=== PATIENT | male | born 1950 | race Caucasian/White ===

== ENCOUNTER 2020-03-07 03:14 | Outpatient (CLI) | payer OTHER, SELFPAY ==
[2020-03-11 10:04] LABS: Free PSA/PSA Ratio 0.21 ratio
== END 2020-03-07 03:34 ==
PROVIDERS: PCP Family Medicine; Visit Provider Urology
DX: R97.20 Elevated prostate specific antigen [PSA] (principal)
CPT/HCPCS: 36415; 84154

== ENCOUNTER 2021-03-12 02:11 | Outpatient (CLI) | payer OTHER, SELFPAY | END 2021-03-12 02:12 | disposition home or self-care (01) | LOC: LBO 02:11 | PROVIDERS: PCP Family Medicine; Visit Provider Urology | DX: R97.20 Elevated prostate specific antigen [PSA] (principal) | CPT/HCPCS: 84154 ==

== ENCOUNTER 2021-04-09 01:42 | Outpatient (CLI) | payer OTHER, SELFPAY ==
[2021-04-09] MEDS: Omnipaque 350 MG/ML 50 ML BTL PO (09:58)
[2021-04-09] MEDS: Breeza Beverage 473 ML BTL PO ×2 (09:58→09:59)
[2021-04-09 09:59] LABS: CREATININE 0.8 mg/dL (0.70-1.30)
--- NOTE | 2021-04-09 11:00 | DI.CT_ITS ---
Exam(s) CT ABDOMEN PELVIS W EXAM: CT ABDOMEN PELVIS W CLINICAL HISTORY: EDEMA OF MALE GENITAL ORGANS, N50.89 TECHNIQUE: Imaging Protocol: Axial computed tomography images with coronal and sagittal reformatted images were created and reviewed CONTRAST MATERIAL: Intravenous: Omnipaque 350 Contrast volume:100 mL Oral: Yes COMPARISON: No exams were available for comparison FINDINGS: ABDOMEN: Lung Bases: Small hiatal hernia. Coronary artery calcifications are present. Liver: There is diffuse decreased attenuation of the liver most consistent with fatty infiltration. There are few tiny hypodensities in the liver. They are too small for further characterization at th is time. No suspicious hepatic masses are present. Portal, Superior Mesenteric, and Splenic Veins: Unremarkable. Gallbladder and Biliary Tract: No radiodense calculus or dilation. Pancreas: Normal density, no abnormal calcifications or inflammatory process. Spleen: Normal. Adrenals: No masses seen. Kidneys: Normal size, contour and axis. No radiodense stones or obstructive uropathy. No masses seen. Abdominal Aorta: Abdominal portion non-dilated. Atherosclerosis. Bowel: No obstruction or bowel wall thickening. Appendix is unremarkable. Peritoneal Cavity: No ascites, collection or mesenteric inflammatory response. No free air. Lymph Nodes: Within normal limits. Bones: Within normal limits for the patient's age. 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 There is fusion of the L5-S1 disc space. Soft Tissues: There is a small right fat containing inguinal hernia. There is a small fat containing umbilical hernia. There is edema seen in the soft tissues of the scrotum. No focal fluid collectio n is appreciated. PELVIS: Bladder: Symmetric distention, no gross wall thickening. Reproductive Organs: The prostate gland is markedly enlarged and impinges upon the base of the urinar y bladder. Lymph Nodes: Within normal limits. Bones: Within normal limits for the patient's age. IMPRESSION: 1. Edema seen in the soft tissues of the scrotum without focal fluid collection. Testicular ultrasou nd should be considered for further evaluation. 2. Prostatic gland hypertrophy. 3. Fat containing right inguinal hernia. RADIATION DOSE DELIVERED: 2,567.01mGy.cm Total DLP DATA REPOSITORY: All CT scans at this facility are submitted to the National Radiology Data Registry (NRDR) Dose Index Registry (DIR) with the [employer] (A[employer]). RADIATION OPTIMIZATION: All CT scans at this facility use at least one of these dose optimization te chniques: automated exposure control; mA and/or kV adjustment per patient size (includes targeted exa ms where dose is matched to clinical indication); or iterative reconstruction.
[2021-04-09] MEDS: Omnipaque 350 MG/ML 100 ML BTL IJ (11:26)
== END 2021-04-09 02:02 ==
PROVIDERS: PCP Family Medicine; Visit Provider Urology
DX: Z01.812 Encounter for preprocedural laboratory examination (principal); N50.89 Other specified disorders of the male genital organs; K76.0 Fatty (change of) liver, not elsewhere classified; K76.89 Other specified diseases of liver; N40.0 Benign prostatic hyperplasia without lower urinary tract symptoms; K40.90 Unilateral inguinal hernia, without obstruction or gangrene, not specified as recurrent
CPT/HCPCS: 74177; 82565; J3490; Q9967

== ENCOUNTER → 2021-12-09 02:48 | Outpatient (CLI) | payer OTHER, SELFPAY ==
--- NOTE | 2021-12-09 08:45 | DI.US_ITS ---
Exam(s) US SCROTUM EXAM: US SCROTUM CLINICAL HISTORY: SCROTAL EDEMA, N50.89. TECHNIQUE: Scrotal ultrasound performed using grayscale, color-flow and spectral Doppler analysis. COMPARISON: No exams were available for comparison FINDINGS: Right testicle: 4.4 x 2.1 x 2.1 cm Echogenicity: Normal. Contour: Smooth. Mass: None seen. Microlithiasis: There are few tiny echogenic foci in the right testicle. Hydrocele: None. Variocele: None. Hernia: No peristalsing bowel loop identified. Epididymis: Normal. Left testicle: 3.9 x 2.1 x 2.5 cm Echogenicity: Normal. Contour: Smooth. Mass: None seen. Microlithiasis: There are few tiny echogenic foci seen within the testicle. Hydrocele: There is a small hydrocele measuring 1.6 x 1.4 x 3.0 cm. Variocele: None. Hernia: No peristalsing bowel loop identified. Epididymis: Small spermatoceles are seen in the epididymal head. The largest measures 1.8 x 1.0 x 2. 2 cm. DOPPLER: Color: Symmetric and uniform, no hyperemia. Duplex: Bilateral testicular arterial waveforms visualized. IMPRESSION: 1. No evidence of a testicular mass or inflammatory process. 2. Small left hydrocele and left epididymal cysts. DATA REPOSITORY:
== END ==
PROVIDERS: PCP Family Medicine; Visit Provider Urology
DX: N50.89 Other specified disorders of the male genital organs (principal); N43.3 Hydrocele, unspecified; N43.42 Spermatocele of epididymis, multiple; N50.3 Cyst of epididymis
CPT/HCPCS: 76870

== ENCOUNTER 2022-03-04 14:50 | Outpatient (CLI) | payer MEDICARE, SELFPAY ==
[2022-03-07 12:24] LABS: Free PSA/PSA Ratio 0.23 ratio
== END 2022-03-04 14:51 | disposition home or self-care (01) ==
PROVIDERS: PCP Family Medicine; Visit Provider Urology
DX: R97.20 Elevated prostate specific antigen [PSA] (principal)
CPT/HCPCS: 36415; 84154

== ENCOUNTER 2022-04-06 10:41 | Emergency (ER) | payer MEDICARE, SELFPAY ==
[2022-04-06 10:47] VITALS: BP 160/91; PULSE 72; RESP 18; TEMP 36.7; O2SAT 99
--- NOTE | 2022-04-06 11:00 | DI.RAD_ITS ---
Exam(s) XR RIBS RT W PA LAT CHEST CLINICAL HISTORY: Fall, Right Flank pain, R/O Rib fracture. COMPARISON: No exams were available for comparison TECHNIQUE:: PA and lateral views of the chest and four views of the right ribs were performed. FINDINGS: LUNGS:Clear. No pleural abnormality seen. HEART: Normal. MEDIASTINUM: Normal. BONES: No displaced rib fracture is seen. No bony destructive lesion is seen. OTHER FINDINGS: Right shoulder prosthesis. IMPRESSION: 1. Unremarkable radiographic appearance of the right ribs. 2. No acute pulmonary findings.
--- NOTE | 2022-04-06 11:16 | ED.GENADUL_ITS ---
Discharge Plan Disposition Patient Disposition: Home Discharge Details Clinical Impression: Chest wall soft tissue injury, Fall (on)(from) incline, initial encounter Primary Care Provider: Tonya Pinto ED Provider: Aundrea Linares Home Meds and New Rx's Prescriptions: Continued metformin 500 MG tablet 500 mg PO DAILY pravastatin 40 MG tablet 40 mg PO DAILY meloxicam 15 MG tablet 15 mg PO DAILY Patient Comments: 05/24/17 er--on hold post surgery finasteride 5 MG tablet 5 mg PO DAILY ergocalciferol (vitamin D2) 400 UNIT tablet 125 units PO WEEKLY ranitidine HCl 150 MG tablet 150 mg PO DAILY albuterol sulfate [ProAir HFA] 8.5 GM HFA aerosol inhaler 2 puff Inhalation Q4H PRN Discharge Instructions Instructions: Fall Prevention for Older Adults (ED), Chest Wall Pain (ED) Additional Instructions: No evidence of rib fracture on the x-ray. Please use the lidocaine patch as directed. Please continue to take Tylenol or Ibuprofen with food every 4-6 hours as needed for pain and swelling. Please return to the ER for any worsening pain not relieved by Tylenol ibuprofen or lidocaine patches, worsening abdominal pain, coughing up blood or coughing up any sputum. Return for any fever increased shortness of breath or concerns. You may be sore for a few days. Thank you for allowing us to take care of you today and be involved in your care. Follow up with primary care provider in 3-5 days. Return to ED sooner if any worsening or concerns. Increase oral fluids. Referrals: Tonya Pinto [Primary Care Provider] - 2 weeks Discharge Data Discharge Date/Time-TO BE ENTERED AT DEPARTURE: 04/06/22 12:11 Medical Decision Making 71-year-old male presents to the ER with chief complaint of right-sided rib pain with movement after a fall couple of days ago on Wednesday slipped on the ice while getting into the truck. He is in no respiratory distress. He does have pain to his right flank with getting up from sitting positions. Lungs are clear bilaterally no ecchymosis, depression or bruising noted. Denies any chest pain or any other associated symptoms. He did not hit his head. He is not taking any aspirin or blood thinners. Rib series x-ray ordered. Ultrasound at bedside, no evidence of significant pneumothorax at this time. Patient is moving breathing eupneic. Will consider lidocaine patch if needed. X-ray showed no acute displaced rib fracture there is a right shoulder prosthesis. No acute pulmonary findings. No evidence of pneumothorax on the x- ray. I do suspect costochondritis or musculoskeletal strain. I will discuss strict return instructions to return if any worsening shortness of breath, worsening pain not relieved by Tylenol or ibuprofen or lidocaine patches, hemoptysis or any other worsening.. Will place lidocaine patch here in the emergency department. This text was generated using STYLIGHTation system, please disregard any oddities of phrase or misspellings. Imaging Data Radiologic Study: Imaging: X-Ray Radiologist's impression: XR RIBS RT W PA LAT CHEST CLINICAL HISTORY: Fall, Right Flank pain, R/O Rib fracture. COMPARISON: No exams were available for comparison TECHNIQUE:: PA and lateral views of the chest and four views of the right ribs were performed. FINDINGS: LUNGS:Clear. No pleural abnormality seen. HEART: Normal. MEDIASTINUM: Normal. BONES: No displaced rib fracture is seen. No bony destructive lesion is seen. OTHER FINDINGS: Right shoulder prosthesis. IMPRESSION: 1. Unremarkable radiographic appearance of the right ribs. 2. No acute pulmonary findings. HPI General Mode of arrival: ambulatory . Date/Time Provider Initiated Documentation: 04/06/22 10:42 . Limitations to Documentation: no limitations . Information obtained by: patient, RN notes reviewed and old records reviewed . HPI Narrative: 71-year-old male presents to the ER with chief complaint of right-sided rib pain with movement after a fall couple of days ago on Wednesday slipped on the ice while getting into the truck. He is in no respiratory distress. He does have pain to his right flank with getting up from sitting positions. Lungs are clear bilaterally no ecchymosis, depression or bruising noted. Denies any chest pain or any other associated symptoms. He did not hit his head. He is not taking any aspirin or blood thinners. He has a history of some knee surgeries. High cholesterol and diabetes. No known drug allergies. He has been taking Tylenol and ibuprofen for pain relief. Related Data Home Medications Medication Instructions Recorded Confirmed albuterol sulfate 90 mcg/actuation 2 puff inhalation Q4H PRN 07/11/15 05/24/17 aerosol inhaler (ProAir HFA) ergocalciferol (vitamin D2) 10 mcg 125 units PO WEEKLY 07/11/15 05/24/17 (400 unit) tablet finasteride 5 mg tablet 5 mg PO DAILY 07/11/15 05/24/17 meloxicam 15 mg tablet 15 mg PO DAILY 07/11/15 metformin 500 mg tablet 500 mg PO DAILY 07/11/15 05/24/17 pravastatin 40 mg tablet 40 mg PO DAILY 07/11/15 05/24/17 ranitidine HCl 150 mg tablet 150 mg PO DAILY 07/11/15 05/24/17 Allergies Allergy/AdvReac Type Severity Reaction Status Date / Time No Known Allergies Allergy Unverified 05/24/17 08:37 General Stated Complaint: Chest/Rib IAN: 4 Review of Systems All systems reviewed & are unremarkable except as noted in HPI and below PFSH All Active Problems (Updated 04/06/22 @ 12:03 by Aundrea Linares NP) Chest wall soft tissue injury (Acute) Fall (on)(from) incline, initial encounter (Acute) Social History Smoking/Tobacco Use Status: Never Smoking risk assessment performed?: Yes Alcohol Intake: current Alcohol Intake frequency: a few times a month Do you feel safe in your relationship?: Yes Exam Narrative Exam Narrative: Constitutional: Alert and oriented x3. Appears stated age. Normal body habitus. Head: Normocephalic, no trauma. Eyes: Pupils PERRL, Red reflex noted, EOM's intact. Eyelids symmetrical without lesions, discharge, or swelling. ENT: Bilateral TM's WNL, External ear normal to inspection, no mastoid TTP, swelling, or erythema, Nasal turbinates WNL, no nasal discharge. Normal dentit ion, Posterior pharynx WNL, no exudate. Chest: RRR, Normal S1, S2, distal pulses intact. Resp: Lungs clear to auscultation bilaterally, no wheezes, rales, or rhonchi. Abdomen: Soft, non-distended, Normoactive bowel sounds all 4 quads. Musculoskeletal: Normal gait, 5/5 strength to all four extremities. Tenderness with palpation to the right lower rib cage. No ecchymosis or contusions noted. Skin: No suspicious rashes or lesions. Capillary refill less than 2 sec. Neurologic: Cranial nerves II-XII intact. Alert and oriented x 3. Motor: No deficits noted. Sensory: Intact bilaterally all 4 extremities. Reflexes: DTR's intact bilaterally.. Hematologic/Lymphatic: No ecchymosis, no lymphadenopathy. Course Vital Signs Vital signs: Vital Signs Temperature 36.7 C 04/06/22 10:47 Pulse 72 04/06/22 10:47 Respiratory Rate 18 04/06/22 10:47 Blood Pressure 160/91 H 04/06/22 10:47 Pulse Oximetry 99 04/06/22 10:47 Temperature 36.7 C 04/06/22 10:47 Pulse 72 04/06/22 10:47 Respiratory Rate 18 04/06/22 10:47 Respiratory Effort Normal 04/06/22 10:55 Respiratory Depth Normal 04/06/22 10:55 Respiratory Pattern Normal 04/06/22 10:55 Blood Pressure 160/91 H 04/06/22 10:47 Blood Pressure Position Sitting 04/06/22 10:47 Pulse Oximetry 99 04/06/22 10:47 Oxygen Delivery Method Room Air 04/06/22 10:47 Oxygen Flow Rate 0 04/06/22 10:47 Pain Level 0 04/06/22 10:55 PAWSS Have you Been Recently Intoxicated or Drunk Within the Last 30 days?: No Have you Ever Experienced Previous Episodes of Alcohol Withdrawal?: No Have you ever Experienced Withdrawal Seizures?: No Have you ever Experienced Delirium Tremens(DT)s?: No Have you ever undergone Alcohol Rehabilitation Treatment (i.e, inpt ot outpatient treatment programs)?: No Have you ever Experienced Blackouts?: No Have you ever Combined Alcohol with other Downers within the last 90 days?: No Have you ever Combined Alcohol with any other Substance of Abuse during the last 90 days?: No Positive Blood Alcohol level on Presentation? [PCS.BAL]: No Evidence of Increased Autonomic Activity (i.e. HR>120, tremor, sweating, agitation, nausea)?: No Result: 0
[2022-04-06] MEDS: Lidocaine 5% Patch 1 PATCH TP (12:00)
[2022-04-06 12:10] VITALS: PULSE 71; RESP 18; O2SAT 97
== END 2022-04-06 12:11 | disposition home or self-care (01) ==
PROVIDERS: Emergency Provider Registered Nurse Emergency; PCP Family Medicine
DX: S09.93XA Unspecified injury of face, initial encounter (principal); W00.0XXA Fall on same level due to ice and snow, initial encounter; Y93.89 Activity, other specified
CPT/HCPCS: 99283; 71046; 71100; 99284

== ENCOUNTER 2023-07-09 01:59 | Outpatient (CLI) | payer MEDICARE, SELFPAY ==
[2023-07-12 12:08] LABS: Free PSA/PSA Ratio 0.25 ratio
== END 2023-07-09 02:00 | disposition home or self-care (01) ==
LOC: LBO 01:59
PROVIDERS: PCP Family Medicine; Visit Provider Urology
DX: R97.20 Elevated prostate specific antigen [PSA] (principal)
CPT/HCPCS: 36415; 84154

== ENCOUNTER 2024-03-01 04:03 | Outpatient (CLI) | payer MEDICARE, SELFPAY ==
[2024-03-02 18:56] LABS: Free PSA/PSA Ratio 0.25 ratio
== END 2024-03-01 04:04 | disposition home or self-care (01) ==
PROVIDERS: PCP Family Medicine; Visit Provider Urology
DX: R97.20 Elevated prostate specific antigen [PSA] (principal)
CPT/HCPCS: 36415; 84154

== ENCOUNTER 2024-10-09 04:20 | Outpatient (CLI) | payer MEDICARE, SELFPAY | END 2024-10-09 04:21 | disposition home or self-care (01) | PROVIDERS: PCP Family Medicine; Visit Provider Urology | DX: R97.20 Elevated prostate specific antigen [PSA] (principal) | CPT/HCPCS: 36415; 84154 ==

== ENCOUNTER 2024-11-26 09:05 | Emergency (ER) | payer MEDICARE, SELFPAY ==
[2024-11-26] VITALS (19 sets, daily range): BP systolic 153–186; BP diastolic 82–92; PULSE 84–103; RESP 11–26; O2SAT 95–100
--- NOTE | 2024-11-26 09:00 | RT.EKG_ITS ---
APPROVED REPORT Exam: Resting ECG Reason for Exam: Chest Pain Patient Location: E HR:95 bpm ECG Measurements Heart Rate 95 AXIS SC 156 P 17 QRSd 94 QRS 14 QT 349 T 29 QTc 434 Conclusion Sinus rhythm...normal P axis, V-rate 60- 99 Multiple ventricular premature complexes...V complexes w/ short R-R intervls
--- NOTE | 2024-11-26 09:30 | DI.RAD_ITS ---
Exam(s) XR SHOULDER LT COMPLETE 2+V EXAM: XR SHOULDER LT COMPLETE 2+V CLINICAL HISTORY: pain, limited rom. TECHNIQUE: 2D digital imaging was performed. COMPARISON: No exams were available for comparison FINDINGS: Five views No evidence of acute fracture or dislocation. There is moderate diminution of the subacromial space. There is also a 4 x 3 millimeter calcific density in the anterior aspect of the rotator cuff musculature. There is also moderate degenerative change in the glenohumeral joint with some joint space narrowing and an osteophyte on the inferior articular surface of the humeral head. There is also degenerative change in the AC joint. Clavicle otherwise unremarkable. 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 Diminished subacromial space and calcific density consistent with rotator cuff tendinosis. Cannot exclude rotator cuff tear. DATA REPOSITORY: RADIATION DOSE DELIVERED:
--- NOTE | 2024-11-26 09:34 | W.ED.GENAD ---
Discharge Plan Disposition Patient Disposition: Home Condition: Stable Discharge Details Clinical Impression: Rash, Left shoulder pain Primary Care Provider: Tonya Pinto ED Provider: Nahun Romo Home Meds and New Rx's Prescriptions: New valacyclovir 1 gram tablet 1,000 mg PO TID Qty: 20 0RF gabapentin 300 mg capsule 300 mg PO TID Qty: 21 0RF Continued metformin 500 MG tablet 500 mg PO DAILY pravastatin 40 MG tablet 40 mg PO DAILY meloxicam 15 MG tablet 15 mg PO DAILY Patient Comments: 05/24/17 er--on hold post surgery finasteride 5 MG tablet 5 mg PO DAILY ergocalciferol (vitamin D2) 400 UNIT tablet 125 units PO WEEKLY ranitidine HCl 150 MG tablet 150 mg PO DAILY albuterol sulfate [ProAir HFA] 8.5 GM HFA aerosol inhaler 2 puff Inhalation Q4H PRN Discharge Instructions Additional Instructions: You are being treated for shingles. Follow-up with your primary care provider especially if you not proving this week. You can take 1000 mg of acetaminophen and 600 mg of ibuprofen every 6 hours as needed. If you feel more ill or have severe worsening pain return to the emergency department for reevaluation. HPI General Mode of arrival: ambulatory. Date/Time Provider Initiated Documentation: 11/26/24 09:09. Limitations to Documentation: no limitations. Information obtained by: patient. History of Present Illness 74 year old M presents to the emergency department with the chief complaint of left shoulder pain, described as moderate, Quality is described as aching, and is localized to the left and upper extremity. Patient reports no radiation. Patient started experiencing this day(s) (5) and it has been constant. No relieving factors improve symptom(s), No exacerbating factors reported . Patient notes denies chest pain and shortness of breath. Related Data Home Medications ?Medication ?Instructions ?Recorded ?Confirmed albuterol sulfate 90 mcg/actuation 2 puff inhalation Q4H PRN 07/11/15 05/24/17 aerosol inhaler (ProAir HFA) ergocalciferol (vitamin D2) 10 mcg 125 units PO WEEKLY 07/11/15 05/24/17 (400 unit) tablet finasteride 5 mg tablet 5 mg PO DAILY 07/11/15 05/24/17 meloxicam 15 mg tablet 15 mg PO DAILY 07/11/15 metformin 500 mg tablet 500 mg PO DAILY 07/11/15 05/24/17 pravastatin 40 mg tablet 40 mg PO DAILY 07/11/15 05/24/17 ranitidine HCl 150 mg tablet 150 mg PO DAILY 07/11/15 05/24/17 gabapentin 300 mg capsule 300 mg PO TID #21 caps 11/26/24 valacyclovir 1 gram tablet 1,000 mg PO TID #20 tabs 11/26/24 Previous Rx's ?Medication ?Instructions ?Recorded gabapentin 300 mg capsule 300 mg PO TID #21 caps 11/26/24 valacyclovir 1 gram tablet 1,000 mg PO TID #20 tabs 11/26/24 Allergies Allergy/AdvReac Type Severity Reaction Status Date / Time No Known Allergies Allergy Unverified 05/24/17 08:37 General Stated Complaint: Orthopedic IAN: 3 Review of Systems All systems reviewed & are unremarkable except as noted in HPI and below Constitutional Constitutional: Denies chills, Denies fever(s) and Denies weakness Cardiovascular Cardiovascular: Denies chest pain and Denies dyspnea Respiratory Respiratory: Denies cough and Denies dyspnea Gastrointestinal Gastrointestinal: Denies abdominal pain, Denies nausea and Denies vomiting Musculoskeletal Musculoskeletal: Reports arthralgias Integumentary/Breasts Skin/Breast: Reports rash Neurologic Neurologic: Denies weakness Exam Const General: no acute distress Orientation: alert [facility] Head: normal to inspection Ears: external ears normal General nose exam: external nose normal Mouth: moist mucous membranes Eyes General: appearance normal, both eyes and all related structures Neck Neck: normal visual inspection Resp Effort & Inspection: normal respiratory effort and able to speak in complete sentences Auscultation: clear to auscultation bilaterally Cardio Jugular venous pressure: no JVD Rate: regular rate Skin Rashes: rashes noted Neuro General: patient alert and patient oriented x3 Extrem General: full ROM and capillary refill normal Psych Mental Status: mental status grossly normal Course Vital Signs Vital signs: Vital Signs Pulse 93 H 11/26/24 09:14 Respiratory Rate 18 11/26/24 09:14 Blood Pressure 186/91 H 11/26/24 09:14 Pulse Oximetry 99 11/26/24 09:14 Pulse 93 H 11/26/24 09:14 Respiratory Rate 18 11/26/24 09:14 Blood Pressure 186/91 H 11/26/24 09:14 Blood Pressure Position Sitting 11/26/24 09:14 Pulse Oximetry 99 11/26/24 09:14 Oxygen Delivery Method Room Air 11/26/24 09:14 Oxygen Flow Rate 0 11/26/24 09:14 Pain Level 2 11/26/24 09:14 Medical Decision Making 74-year-old male comes in with 5 days of nontraumatic left shoulder pain. Denies any fevers, chills, chest pain, difficulty breathing, nausea or vomiting. He says he was put on methocarbamol without significant changes. He has tenderness in the left anterior shoulder and is able to fully range the shoulder but has pain when doing so. There is a vesicular rash on the posterior shoulder and upper extremity and he states he did have chickenpox as a child. He has no meningismus. No other rashes elsewhere. I suspect his pain is due to herpes zoster but will check CBC, CMP and troponins and a D-dimer. Will also obtain a left shoulder x-ray though my suspicion for entities such as fracture is low and he has no findings on exam to suggest septic joint. Labs show no emergent findings, using years algorithm do not feel further testing for PE indicated. He is feeling better. Will prescribe him valacyclovir and he will follow-up with his PCP if not proving and return precautions given Differential Diagnosis Differential Diagnosis: Musculoskeletal joint pain, herpes zoster, ACS ECG Data Attestation: I personally reviewed and interpreted this ECG (s) as follows: Prior ECG tracings: not available for review Interpretation: sinus rate of 95 no stemi pvcs PFSH All Active Problems (Updated 11/26/24 @ 11:42 by Nahun Romo MD) Left shoulder pain (Acute) Rash (Acute) Social History Smoking/Tobacco Use Status: Never Smoking risk assessment performed?: Yes Alcohol Intake: current Alcohol Intake frequency: a few times a month Drug use: Never Substance use type: does not use Do you feel safe in your relationship?: Yes
[2024-11-26] MEDS: valACYclovir 500 MG TAB 1000 MG PO (09:39)
[2024-11-26 09:43] LABS: Abs Immature Grans 0.01 10^3/uL (0.0-0.06); HCT 40.2 % (40.0-50.0); HGB 14.0 g/dL (13.5-17.5); Immature Grans % 0.2 %; MCH 29.7 pg (27.0-33.0); MCHC 34.8 % (32.0-36.0); MCV 85 fL (80-95); MPV 9.1 fL (8.0-11.0); Platelet Count 251 10^3/uL (130-400); RBC 4.72 10^6/uL (4.36-5.78); RDW 12.2 % (11.8-14.1); RDW-SD 37.7 fL; WBC 5.59 10^3/uL (4.4-10.8)
[2024-11-26 10:01] LABS: ALT 40 U/L (16-63); AST 26 U/L (15-37); Albumin 4.0 g/dL (3.4-5.0); Alkaline Phosphatase 68 U/L (46-116); Anion Gap 10.8 mmol/L (3-11); BUN 20 mg/dL (7-18); Bilirubin, Total 0.6 mg/dL (0.2-1.0); CO2 25.2 mmol/L (21.0-32.0); Calcium 9.2 mg/dL (8.5-10.1); Chloride 101 mmol/L (98-107); Estimated GFR 90.18 (mL/min/1.73m2); Glucose 213 mg/dL (74-106); Magnesium 1.9 mg/dL (1.8-2.4); Potassium 3.5 mmol/L (3.5-5.1); Sodium 137 mmol/L (136-145); Total Protein 7.9 g/dL (6.4-8.2); Troponin I 8 ng/L (<or=76)
[2024-11-26 10:13] LABS: D-Dimer 846 ng/mlFEU (<500)
[2024-11-26] MEDS: Gabapentin 300 MG CAP PO (10:45)
[2024-11-26] MEDS: HYDROmorphone 2 MG/ML SYR 1 MG IVP (10:46)
[2024-11-26] MEDS: Normal Saline 50 ML 400 ML (10:52)
[2024-11-26 10:57] LABS: Troponin I 8 ng/L (<or=76)
--- NOTE | 2024-11-26 12:40 | DI.VRAD_ITS ---
PROCEDURE INFORMATION: Exam: XR Left Shoulder Exam date and time: 11/26/2024 10:06 AM Age: 74 years old Clinical indication: Pain; Shoulder; Left TECHNIQUE: Imaging protocol: Radiologic exam of the left shoulder. Views: 2 or more views. COMPARISON: No relevant prior studies available. FINDINGS: Bones/joints: Moderate glenohumeral joint degenerative changes. No acute fractures. Soft tissues: Calcification in the soft tissues of the rotator cuff. IMPRESSION: 1. Moderate glenohumeral arthropathy. 2. Rotator cuff calcific tendinitis. Dictated and Authenticated by: Darin Rosenberg MD. Orderin Demetrius Garnica MD
== END 2024-11-26 12:02 | disposition home or self-care (01) ==
PROVIDERS: Emergency Provider Emergency Medicine; PCP Family Medicine
DX: M25.512 Pain in left shoulder (principal); R21 Rash and other nonspecific skin eruption
CPT/HCPCS: 36415; 80053; 93005; 96374; 99284; 73030; 83735; 84484; 85025; 85379; 93010; J1171